=== PATIENT | female | born 1995 | race Caucasian/White ===

== ENCOUNTER 2016-12-11 16:44 | Observation (INO) ==
[2016-12-11 17:41] LABS: Basophils % 0.2 %; Eosinophils # 0.3 K/mcL (0.0-0.6); Eosinophils % 2.3 %; Hematocrit 32.9 % (35.3-44.9); Hemoglobin 11.1 g/dL (11.5-15.4); Immature Granulocytes % 0.5 % (0-4); Lymphocytes # 3.3 K/mcL (0.6-4.6); Lymphocytes % 26.8 %; Mean Corpuscular HGB Conc 33.7 g/dL (31.6-35.5); Mean Corpuscular Hemoglobin 30.8 pg (28.0-33.3); Mean Corpuscular Volume 91.4 fL (83.0-100.0); Mean Platelet Volume 11.6 fL (9.4-12.4); Monocytes # 0.5 K/mcL (0.0-1.3); Monocytes % 3.9 %; Neutrophils # 8.1 K/mcL (1.6-8.9); Platelet Count 193 K/mcL (140-400); Red Cell Distribution Width 12.4 % (11.5-14.5); Segmented Neutrophils % 66.3 %
[2016-12-26 20:00] LABS: Bilirubin,Urine Negative (Negative); Blood,Urine Negative (Negative); Clarity,Urine Cloudy (Clear); Color,Urine Yellow (Yellow); Glucose,Urine (UA) Normal (Normal); Ketones,Urine Negative (Negative); Leukocyte Esterase,Urine Negative (Negative); Nitrite,Urine Negative (Negative); Protein,Urine Negative (Neg-Trace); Specific Gravity,Urine 1.015 (1.010-1.025); Urobilinogen,Urine Normal (Normal)
[2016-12-26 20:05] LABS: Bacteria,Urine None Seen per hpf (None-Few); Hyaline Casts,Urine None Seen per lpf (None-Few); RBC,Urine 0-3 per hpf (0-3); Squamous Epithelial Cell,Urine Many per lpf (None-Few); WBC,Urine 0-3 per hpf (0-3)
[2016-12-26 20:28] LABS: Candida DNA ***DETECTED*** (Not Detect); Gardnerella DNA Not Detected (Not Detect); Trichomonas DNA Not Detected (Not Detect)
--- NOTE | 2016-12-26 20:34 | OB/GYN Progress Note ---
Date of Encounter: 12/26/16 Time of Encounter: 20:40 - Assessment and Plan (1) 31 weeks gestation of Current Visit: Yes Status: Acute (2) False labor Current Visit: Yes Status: Acute Patient presented for labor evaluation with reported loss of fluid and contractions. Fern negative, nitrozine negative. Cervix is closed. Patient observed for over and hour and TOCO showed no contracts. heart tracing category 1. Patient will be discharged home with directions to follow up with her OB. (3) Candidal vulvovaginitis Current Visit: Yes Status: Acute Patient with thin, white discharge on speculum exam. Vaginosis panel positive for candidiasis. Urine showed no signs of infection. Patient will be sent home with clotrimazole vaginally every day for 7 days. Gonorrhea and chlamydia cultures are pending - patient will be called with results. Subjective - Subjective Principal diagnosis: 31 weeks gestation presents with reported contractions and fluid loss Interval history: Ms Diggs is a at 31 weeks who was brought here via EMS for labor evaluation. Patient reports that she had a loss of fluid around 3pm this afternoon and since then she has had contractions every 5 min. She reports good movement. She reports 3 days of white vaginal discharge. She also reports a cold with a cough and some shortness of breath over the last couple days. Patient denies headache, vision changes, chest pain, nausea/vomiting, or changes in bowel and bladder. Patient's previous was a spontaneous vaginal delivery at 30 weeks at [facility]. She also reports a chlamydia infection that was treated during previous . She has been non-compliant this with multiple missed appointments. She has not seen MFM at [facility] as recommended yet this . She is taking her prescribed progesterone. Antepartum ROS: loss of fluid, movement normal, contractions, no vaginal bleeding Objective - Vital Signs Vital Signs: Intake and Output 12/26/16 12/26/16 12/26/16 07:59 15:59 23:59 Other: Weight 82.1 kg Patient Weight 12/26/16 23:59 Weight 82.1 kg - Exam FHR: auscultation normal Auscultation: bilateral: normal Abdomen: Present: normal appearance, soft, gravid Comments: Speculum exam done showed white, thin, foul odored discharge. Fern negative, Nitrozine negative. No signs of bleeding, cervix appears closed. - Labs Labs: Abnormal lab results WBC 12.3 K/mcL (4.3-11.1) H 12/11/16 15:35 RBC 3.60 M/mcL (3.82-4.97) L 12/11/16 15:35 Hgb 11.1 g/dL (11.5-15.4) L 12/11/16 15:35 Hct 32.9 % (35.3-44.9) L 12/11/16 15:35 Urine Clarity Cloudy (Clear) A 12/26/16 19:50 Ur Squamous Epith Cells Many per lpf (None-Few) H 12/26/16 19:50 Subha species DNA DETECTED (Not Detect) A 12/26/16 19:17
== END 2016-12-26 20:53 | disposition home or self-care (01) ==
LOC: LABOML 16:44 → 1NENULAB 16:44 → LABOML 16:45

== ENCOUNTER 2016-12-16 01:00 | Observation (INO) ==
--- NOTE | 2016-12-16 07:21 | OB/GYN Progress Note ---
Date of Encounter: 12/16/16 Time of Encounter: 07:19 - Assessment and Plan (1) 29 weeks gestation of Status: Acute (2) Decreased movement during in third trimester, antepartum Status: Acute Qualifiers: Fetus number: single or unspecified fetus Qualified Code(s): O36.8130 - Decreased movements, third trimester, not applicable or unspecified (3) Non-stress test reactive Status: Acute Subjective - Subjective Interval history: Pt. at 29 weeks to L&D for decreased movements Objective - Vital Signs Vital Signs: Intake and Output 12/15/16 12/15/16 12/16/16 15:59 23:59 07:59 Other: Weight 86.5 kg Patient Weight 12/16/16 23:59 Weight 86.5 kg - Exam FHR: category 1
== END 2016-12-16 01:58 | disposition home or self-care (01) ==
LOC: 1NENULAB

== ENCOUNTER → 2017-02-04 11:08 | Observation (INO) ==
[2017-02-04 08:11] LABS: Bilirubin,Urine Negative (Negative); Blood,Urine Negative (Negative); Clarity,Urine Clear (Clear); Color,Urine Yellow (Yellow); Glucose,Urine (UA) Normal (Normal); Ketones,Urine Negative (Negative); Leukocyte Esterase,Urine Negative (Negative); Nitrite,Urine Negative (Negative); PH,Urine 7.5 pH Units (5.0-8.0); Protein,Urine Negative (Neg-Trace); Specific Gravity,Urine 1.009 (1.010-1.025); Urobilinogen,Urine Normal (Normal)
--- NOTE | 2017-02-04 11:01 | OB/GYN Progress Note ---
Date of Encounter: 02/04/17 Time of Encounter: 10:59 - Assessment and Plan (1) 36 weeks gestation of Current Visit: Yes Status: Acute (2) False labor Current Visit: No Status: Acute No cervical change and no leaking in triage. Discharge home with precautions. (3) Non-stress test reactive Current Visit: No Status: Acute Subjective - Subjective Interval history: 21 year-old at 36w3d presenting for leaking fluid and contractions. She reports some leaking fluid at 0550 this am followed by onset of contractions. She denies additional leaking since. No VB. Contractions are frequent and mildly painful. She denies urinary sx or discharge, itching, or burning. Good FM. No other complaints. Antepartum ROS: loss of fluid, movement normal, contractions, no vaginal bleeding Objective - Vital Signs Vital Signs: Intake and Output 02/03/17 02/04/17 02/04/17 23:59 07:59 15:59 Other: Weight 87.7 kg Patient Weight 02/04/17 23:59 Weight 87.7 kg - Exam FHR: category 1 FHR comments: NST reactive 125BPM Auscultation: bilateral: normal Abdomen: Present: soft, gravid Uterus: Present: normal Cervical dilation: 1-2cm with no cervical change after several hours Comments: Bollottable with palpable bag of water and no leaking noted in triage. - Labs Labs: Abnormal lab results Ur Specific [place] 1.009 (1.010-1.025) L 02/04/17 08:00
== END | disposition home or self-care (01) ==
LOC: 1NENULAB
PROVIDERS: ADMIT Obstetrics & Gynecology; ATTEND Obstetrics & Gynecology

== ENCOUNTER → 2017-02-04 23:52 | Observation (INO) ==
--- NOTE | 2017-02-04 21:32 | OB/GYN Progress Note ---
Date of Encounter: 02/04/17 Time of Encounter: 21:30 - Assessment and Plan (1) 36 weeks gestation of Current Visit: No Status: Acute -Evaluate for ROM -Patient cervix unchanged since this morning -PMH schizophrenia, bipolar, ADHD. Does not take medication. -Urine negative this morning Plan -Continue to monitor mother and fetus-BP, HR -Vaginosis panel -Recheck cervix very hour for changes -If unchanged after 3 hours. Discharge home and f/u with Dr. Hutton as outpatient. (2) Vaginitis affecting in third trimester, antepartum Current Visit: Yes Status: Acute Testing + for BV and Subha. Rx for Terazol7 and Flagyl po x 7 days (3) Noncompliance with treatment Current Visit: Yes Status: Acute GBS testing. Encoouraged to keep appts Subjective - Subjective Principal diagnosis: Contractions and possible ROM Interval history: 21F,, 37w?d (records indicate 36w3d) presents with "fluid coming out of her vagina" and "jackson" at 8:30pm tonight. She was seen for the same issue this morning at 5:50am and discharged home. States around 8:30 she felt a gush of fluid and soaked her jeans and then called the squad. Squad states they noticed no fluid and pads are dry. Her only complaint is pain with the contractions. She is 1-2cm dilated, dry vaginal vault. Otherwise, asymptomatic. She admits to smoking cigarets (1/2 ppd), marijuana 6 times in , denies alcohol use. Is A positive. OBGYN is Dr. Hutton. Antepartum ROS: movement normal, no other (vaginal d/c? LOF?) Objective - Exam FHR: auscultation normal, category 1 FHR comments: 130s baseline Auscultation: bilateral: normal Abdomen: Present: normal appearance, soft, gravid Uterus: Present: normal, firm Cervical dilation: 1-2cm per nurse. Unchanged since this morning. Cervix effacement: 50 Comments: Per nurse, fluid still felt. No ROM. NTZ neg - Attending Attestation I examined this patient and my medical decision-making was reviewed with the ORTHOPHOTO TECH/DRAFTSMAN/PA/Advanced Practice Nurse/Resident Physician. I agree with the documented findings, disposition and treatment plan as described except to the extent set forth below.
[2017-02-04 21:45] VITALS: BP 132/64
[2017-02-04 23:11] LABS: Candida DNA ***DETECTED*** (Not Detect); Gardnerella DNA ***DETECTED*** (Not Detect); Trichomonas DNA Not Detected (Not Detect)
--- NOTE | 2017-02-04 23:45 | Event Note ---
<Zachary Chang - Last Filed: 02/04/17 23:46> Date of Encounter: 02/04/17 Time of Encounter: 23:41 Patient has not had any cervical change management facilitator the last 2 hours. Contractions every 3-6min. FHR 130's with good variability. Patient condition and symptoms unchanged. She tested positive for nicho and BV. UA negative this morning. Will discharge with abx-flagyl and tercanazol. Discussed treatment plan with patient-friend in the room-she feels comfortable going home. Told to call Dr. Hutton office tomorrow morning or return if she has new or worsening symptoms. <Yolanda Trinidad - Last Filed: 02/05/17 07:28> I examined this patient and my medical decision-making was reviewed with the COMMERCIAL FLOOR COVERING INSTALLER/PA/Advanced Practice Nurse/Resident Physician. I agree with the documented findings, disposition and treatment plan as described except to the extent set forth below.
== END | disposition home or self-care (01) ==
LOC: 1NENULAB
PROVIDERS: ADMIT Obstetrics & Gynecology; ATTEND Obstetrics & Gynecology

== ENCOUNTER → 2017-02-09 20:30 | Observation (INO) ==
--- NOTE | 2017-02-09 20:06 | OB/GYN Progress Note ---
Date of Encounter: 02/09/17 Time of Encounter: 20:00 - Assessment and Plan (1) and not yet delivered in third trimester Current Visit: Yes Status: Acute (2) 37 weeks gestation of Current Visit: Yes Status: Acute (3) False labor after 37 completed weeks of gestation Current Visit: Yes Status: Acute discharge home and follow up in the office this week Subjective - Subjective Interval history: Patient is a 21-year-old 2 para 1 at 37-1/7 weeks who presented to labor and delivery complaining of contractions and questionable ruptured membranes. Patient has had very limited care has missed multiple appointments. Patient has a history of delivery was on IM progesterone and was to take that up to 36 weeks that she has not been seen for the past 4 weeks. When questioned why she has not been to the office she states that her car keeps breaking down. Patient thought that she was leaking nitrazine was negative. We have not seen any contractions on the monitor while here on labor and delivery. Patient was 2-3 cm on initial examination no cervical change made. Patient has not had a group B performed yet but we to station detective before he realize that. Patient has an upcoming appointment in 3 days advised her to keep that appointment and they can do the group B at that time. Antepartum ROS: loss of fluid, contractions Objective - Vital Signs Vital Signs: Intake and Output 02/09/17 02/09/17 02/09/17 07:59 15:59 23:59 Other: Weight 88.4 kg Patient Weight 02/09/17 23:59 Weight 88.4 kg - Exam FHR: category 1 FHR comments: heart tones 140s reactive contractions not seen Auscultation: bilateral: normal Abdomen: Present: gravid Uterus: Present: firm Cervical dilation: 2-3 Cervix effacement: 70 station: -3
== END | disposition home or self-care (01) ==
LOC: 1NENULAB
PROVIDERS: ADMIT Obstetrics & Gynecology; ATTEND Obstetrics & Gynecology

== ENCOUNTER 2017-02-23 05:46 | Inpatient (IN) ==
[2017-02-23] MEDS ORDERED: Ondansetron 4 MG/2 ML VIAL IVP PRN ×2 (06:13→21:38)
[2017-02-23] MEDS ORDERED: Naloxone 0.4 MG/ML INJ IVP PRN (06:13)
[2017-02-23] MEDS ORDERED: Famotidine 20 MG/2 ML VIAL IVP PRN (06:13)
[2017-02-23] MEDS ORDERED: Metoclopramide 10 MG/2 ML VIAL IVP PRN (06:13)
[2017-02-23] MEDS ORDERED: *HR* Nalbuphine 20 MG/ML AMPUL IVP PRN (06:20)
[2017-02-23 06:25] LABS: Basophils % 0.2 %; Eosinophils # 0.4 K/mcL (0.0-0.6); Eosinophils % 2.9 %; Hemoglobin 11.5 g/dL (11.5-15.4); Immature Granulocytes % 0.8 % (0-4); Lymphocytes # 5.4 K/mcL (0.6-4.6); Lymphocytes % 36.9 %; Mean Corpuscular HGB Conc 33.8 g/dL (31.6-35.5); Mean Corpuscular Hemoglobin 29.9 pg (28.0-33.3); Mean Corpuscular Volume 88.3 fL (83.0-100.0); Mean Platelet Volume 10.9 fL (9.4-12.4); Monocytes # 0.8 K/mcL (0.0-1.3); Monocytes % 5.3 %; Neutrophils # 7.9 K/mcL (1.6-8.9); Platelet Count 260 K/mcL (140-400); Red Blood Count 3.85 M/mcL (3.82-4.97); Red Cell Distribution Width 12.5 % (11.5-14.5); Segmented Neutrophils % 53.9 %
[2017-02-23] MEDS ORDERED: D5% in 0.45% NACL 1,000 ML IVC SCH (06:30)
[2017-02-23] MEDS: Oxytocin 20 units/ LR 1000 mL 20 UNIT/1,000 ML BAG IVC SCH (07:01)
--- NOTE | 2017-02-23 08:12 | Anesthesia Evaluation PreOp ---
Date of Encounter: 02/23/17 Time of Encounter: 08:10 - Past History Planned Operation: AYSE Cardiac History: Denies any Significant Hx Pulmonary History: Smoker, Pack/yr (7), Asthma (childhood; now well-controlled) Other Medical History: Renal (one kidney has atrophied to size of "pea"--per patient) Anesthesia History: No Prior Anesthetic Complications (denies h/o of complications with NA or GA; denies personal h/o anesthesia complications) : Yes Test: Positive Alcohol Use: none Drug use: marijuana Medications and Allergies MetroNIDAZOLE [Metronidazole] 500 mg PO BID #14 tablet 02/04/17 [Rx] Terconazole [Terazol 7] 45 gm VG DAILY 7 Days 02/04/17 [Rx] Allergies clarithromycin [From Biaxin] Adverse Reaction (Verified 12/16/16 01:06) Hives - Meds/Allergy Pre-op Review Medications Reviewed: Yes Allergies Reviewed: Yes Beta Blockers on Current Med List: No Anesthesia Results - Labs 02/23/17 06:05 Anesthesia Exam 103/55; HR 58; RR 14 Height: 1.6m Weight: 91kg NPO (# of Hours): solids > 8hrs Pain Scale: 3 Pain Scale Used: Numeric (1 - 10) - HEENT Pupil (Motor): Pupils equal Mallampati: I Teeth: Normal Oral Opening: Greater than 3 - HEAD START COORDINATOR LOC: Oriented HEAD START COORDINATOR Motor: Normal RUE, Normal LUE, Normal RLE, Normal LLE, Normal Face HEAD START COORDINATOR Sensory: Normal: RUE, LUE, RLE, LLE, Face - Cardiac Rhythm: Regular Murmur: None - Pulmonary Breath Sounds: bilateral Clear Respiratory Effort: Symmetrical Anesthesia Assess/Plan ASA Score: 2 Modified Alyson Scale for Level of Consciousness: Cooperative, oriented, and tranquil Anesthetic Plan: Regional Autologous Blood: No Monitoring Plan: Standard Monitors Recovery Plan: Other
[2017-02-23] MEDS ORDERED: Bupivacaine-MPF 0.25% 10 ML VIAL EP ONE (08:14)
[2017-02-23] MEDS ORDERED: *HR* FentaNYL (PF) 100 MCG/2 ML VIAL EP ONE (08:14)
[2017-02-23] MEDS ORDERED: Epidural Premix (fent/bupiv) 110 ML EP SCH (08:15)
--- NOTE | 2017-02-23 09:15 | OB/GYN History & Physical ---
Date of Encounter: 02/23/17 Time of Encounter: 09:09 Assessment and Plan (1) 39 weeks gestation of Current visit: Yes Status: Acute admitted for IOL (2) Tobacco use affecting in third trimester, antepartum Current visit: Yes Status: Acute Patient counseled on smoking cessation (3) History of marijuana use Current visit: Yes Status: Acute Cord stat History of Present Illness Chief complaint: Patient presents to Labor and delivery for IOL HPI: Ms. Fallon is a 21 year old female at 39w0d presents to labor and delivery for IOL for Dr. Hutton. Patient reports +FM, denies LOF or VB. Patient has history of 30 week delivery but was not compliant with taking progestrone. Patient is a smoker with THC use and had a history of Chlamydia. Blood Type: A+ , Rubella: Immune, Hep B: Nonreactive, GBS: Negative. Patient plans to breast feed female . Past Med Surg Social Fam HX - Past Medical History Source: patient Medical history: asthma Psychiatric history: anxiety, ADHD, bipolar, depression - Past Surgical History Surgical History: other - Social History Smoking Status: Current every day smoker Packs per day: 1/2 Smokeless Tobacco Status: No Alcohol use: none Drug use: marijuana Current living situation: Home - Independent Activity Level: Independent ambulation Recent Out of Country Travel Within the Last 8 Weeks: No Exposure or Possible Exposure to Illness During Travel: No - Family History Maternal Grandmother Adopted: No Family Member Ethnicity: Non- Living Status: Still Living Hx Family Cardiac Disorders: No Hx Family Respiratory Disorders: Yes (asthma) Hx Family Cancer: Yes (leukemia) Hx Family GI Disorders: No Hx Family Endocrine Disorder: Yes (diabetes) Hx Family Neuromuscular Disorders: No Hx Family Neurologic Disorders: No Hx Family HEENT Disorders: No Hx Family Autoimmune Disorders: No Obstetrical History - Pregnancies : 4 Para: 1 Term: 0 : 1 Ab's: 2 Livin Medications and Allergies MetroNIDAZOLE [Metronidazole] 500 mg PO BID #14 tablet 02/04/17 [Rx] Terconazole [Terazol 7] 45 gm VG DAILY 7 Days 02/04/17 [Rx] Allergies clarithromycin [From Biaxin] Adverse Reaction (Verified 12/16/16 01:06) Hives Review of System OB - Constitutional Constitutional ROS IM: no chills, no fever(s), no headache(s), no weakness - Cardiovascular Cardiovascular: no chest pain, no dyspnea, no edema, no leg edema, no palpitations, no rapid heart rate, no slow heart rate, no syncope - Respiratory Respiratory: no dyspnea - Gastrointestinal Gastrointestinal: no abdominal pain, no constipation, no cramping, no diarrhea, no heartburn, no nausea, no vomiting - Genitourinary Genitourinary: no abnormal vaginal bleeding, no dysuria, no flank pain, no pelvic pain, no urinary frequency, no urinary urgency, no vaginal discharge, no vaginal odor Exam - Constitutional Constitutional: well developed, well nourished, no acute distress, average body habitus - HEENT HEENT: Normocephaly, Mucus Membranes Moist - Neck Neck exam: full ROM, supple - Lungs Respiratory exam: CTAB - Cardiovascular Cardiovascular exam: RRR, +S1, +S2 - Abdomen Abdomen: Present: bowel sounds normal, gravid, non tender - Extremities Extremities exam: full ROM, normal capillary refill, normal inspection Deep Tendon Reflex Grade: 2+ Normal - Cervix Dilation: 4 Effacement: 90 Station: -1 - Uterus Uterus exam: Present: normal size, normal contour - Anus/Rectum Anus/Rectum: Present: normal perianal skin - Comments Comments: FHR 115 bpm moderate variability +15x15 accels no decels noted CAt. 1 tracing. Contractions 3-4 min apart. Pitocin on 4 milliunits. AROM, Moderate amount of clear fluid. Patient tolerated well. Results Result Diagrams: 02/23/17 06:05 Abnormal lab results WBC 14.6 K/mcL (4.3-11.1) H 02/23/17 06:05 Hct 34.0 % (35.3-44.9) L 02/23/17 06:05 Lymphocytes # 5.4 K/mcL (0.6-4.6) H 02/23/17 06:05 All other labs normal. - VTE Reasons for not Prescribing Prophylaxis: Treatment not Indicated - Low risk for VTE
[2017-02-23] MEDS ORDERED: Ringers Solution, Lactated 2,000 ML ONE (09:35)
[2017-02-23] MEDS ORDERED: Bupivacaine-MPF 0.25% 10 ML VIAL ONE (09:42)
[2017-02-23] MEDS ORDERED: Epidural Premix (fent/bupiv) 110 ML EP ONE ×2 (09:42→17:00)
[2017-02-23] MEDS ORDERED: *HR* FentaNYL (PF) 100 MCG/2 ML VIAL ONE ×2 (09:42→20:18)
--- NOTE | 2017-02-23 10:22 | Anesthesia Procedures ---
Date of Encounter: 02/23/17 Time of Encounter: 10:20 Procedures: Anesthesia - Epidural/Spinal Patient ID/Chart reviewed: Yes Patient examined: Yes OB Eval: Gestational age: 39 weeks 0 days OB Eval: : 4 OB Eval: Hx Para: 1 OB Eval: Dilated at (cm): 4 OB Eval: Contractions: Non-stressed pattern Consent Obtained: Yes Supplemental Oxygen: None/Room Air Site Prep: Aseptic Technique, Sterile prep and drape, Povidone-Iodine 1% Patient position: upright Local Anesthetic: Lidocaine 1% Amount of Local Anesthetic used: 3 Touhy Needle Gauge: 18 Touhy Needle Depth (cm): 7 Catheter Depth at Skin (cm): 14 Test Dose (1.5% Lido + Epi): Volume given (mls): 5 (given in 2 equally divided doses over a period of 5 min) Test Dose Result: Negative Loading Dose: 0.25% Marcaine (mls): 5 Loading Dose: Fentanyl (mcg): 100 Loading Dose Administered: Thru Catheter Infusion Med: 0.125% Bupivacaine w/ 2 mcg/ml Fentanyl Infusion Rate (mls/hr): 12 (demand bolus of 4mL q20min) Catheter Secured in Place: Tegaderm, Tape Interspace Used: L3-L4 Loss of Resistance (SHAHNAZ): Yes Blood: No CSF: No Paresthesia: No Vitals + FHT's: please refer to bedside RN's documentation for vital signs
--- NOTE | 2017-02-23 11:58 | OB Labor Progress Note ---
Date of Encounter: 02/23/17 Time of Encounter: 11:56 Labor Progress Note - Subjective Subjective: Patient resting in bed. Patient denies any pain after epidural placement. Discussed POC with patient. Patient denies any questions or concerns. - Cervix Cervix: 4.5/100/0 - Heart Tones Heart Tones: 120 bpm moderate variability +15x15 accels no decels noted. CAt. 1 tracing. - [place]: 2-3 min apart - Interventions Interventions: SVE, IUPC placed without difficulty. Patient tolerated well. - Plan Plan: Continue labor management.
--- NOTE | 2017-02-23 14:15 | OB Labor Progress Note ---
Date of Encounter: 02/23/17 Time of Encounter: 14:13 Labor Progress Note - Subjective Subjective: Patient resting, reports feeling a little pressure despite pushing her bolus button. - Cervix Cervix: 7/100/0 - Heart Tones Heart Tones: 125bpm moderate variability +15x15 accels no decels noted Cat.1 tracing. - [place]: 2-3 min apart - Interventions Interventions: SVE, Patient repositioned to left side with peanut ball. - Plan Plan: Continue labor management.
--- NOTE | 2017-02-23 17:38 | OB Labor Progress Note ---
Date of Encounter: 02/23/17 Time of Encounter: 17:36 Labor Progress Note - Subjective Subjective: Pt. c/o increased pressure - Cervix Cervix: 8/80%/VTX/0 - Heart Tones Heart Tones: Reactive FHR with occ mild variable decels - [place]: Contractions every 2-3 minutes. Pitocin at 15 mU/min. - Plan Plan: Continue expectant management.
--- NOTE | 2017-02-23 17:51 | Anesthesia Progress Note ---
Date of Encounter: 02/23/17 Time of Encounter: 17:49 Anesthesia Note - Note Note: Called to patient bedside to evaluate breakthrough labor pain. Patient reports L sided abdominal pain in addition to R abdominal and back pressure that "wraps around to the front." Confirmed correct catheter position. 5mL of 0.25% bupivicaine administered. Patient reports improvement in perceived pain. VSS 02/23/17 17:49
[2017-02-23] MEDS ORDERED: *HR* Ropivacaine/PF 0.2% 10 ML AMPUL ONE (20:18)
[2017-02-23] MEDS ORDERED: Ringers Solution, Lactated 1,000 ML ONE ×2 (20:34→21:52)
--- NOTE | 2017-02-23 20:37 | OB Labor Progress Note ---
Date of Encounter: 02/23/17 Time of Encounter: 20:35 Labor Progress Note - Subjective Subjective: Pt. in severe pain, crying and has had bolus of epidural. Pain in lower and mid back. - Cervix Cervix: 9/80/VTX/0 - Heart Tones Heart Tones: Reactive FHR - [place]: Contractions every 2 to 2 1/2 minutes. - Plan Plan: Will proceed with C/S for secondary arrest of dilation.
[2017-02-23] MEDS ORDERED: Azithromycin 500 MG in D5% in Water 250 ML IVPB ONE (20:48)
--- NOTE | 2017-02-23 21:34 | Anesthesia Progress Note ---
Date of Encounter: 02/23/17 Time of Encounter: 20:20 Anesthesia Note - Note Note: 02/23/17 21:31 Called to patient bedside to evaluate breakthrough labor pain. Pt c/o 09/08 pain RLQ & RUQ. Confirmed proper catheter position. 10mL of 0.2% ropivicaine + 100mcg fentanyl administered in 2 equally divided doses over a period of 15 minutes. Pt reports significant improvement in pain associated with contractions but is now reporting upper back and neck pain. Patient denies BLE paresthesias or paresis. Pt also remains normo- to hypertensive and NSR.
[2017-02-23] MEDS ORDERED: *HR* Meperidine 50 MG/ML SYRINGE IVP PRN (21:38)
[2017-02-23] MEDS ORDERED: *HR* Promethazine 25 MG/ML VIAL IVP PRN (21:38)
[2017-02-23] MEDS ORDERED: *HR* HYDROmorphone (PF) 1 MG/ML SYRINGE IVP PRN (21:38)
[2017-02-23] MEDS ORDERED: *HR* Morphine Sulfate/PF 5 MG/10 ML AMPUL ONE (21:41)
[2017-02-23] MEDS ORDERED: *HR* Oxytocin 10 UNIT/ML VIAL IM ONE ×2 (21:41→21:52)
[2017-02-23] MEDS ORDERED: *HR* Succinylcholine 200 MG/10 ML VIAL IVP ONE (21:41)
[2017-02-23] MEDS ORDERED: *HR* Propofol 200 MG/20 ML VIAL IVP ONE (21:41)
--- NOTE | 2017-02-23 21:47 | OB/GYN Procedure Note ---
Section - Date of procedure: 02/23/17 Preop diagnosis: arrest of dilation Post-op diagnosis: other (LOP position) Procedure: primary low transverse Surgeon: Te Hutton Estimated blood loss (cc): 400 Roof Technician: Leonard Gamboa Anesthesiologist: Aki Davis Layout Worker: Reilly Zhou Anesthesia Type: General section complications: none Disposition: L&D Recovery Room Specimens: Placenta - (s) A Delivery Date: 02/23/17 Delivery Time: 21:10 Presentation: vertex Position: LOP Route of delivery: other Gender: Female Viability: Viable Pounds: 7 Ounces: 0 Gram Weight: 3180 kg at 1 minute: 7 at 5 minutes: 8 Shoulder Dystocia: not encountered Placenta: complete extraction Cord: 3 umbilical vessels - Narrative Narrative: Patient was taken to the operating room and placed in supine position with left uterine displacement. Skin was then prepped and draped in usual sterile fashion , and a timeout procedure was performed. An epidural was in place but was not functioning well, therefore a general anesthetic was administered. A Pfannenstiel incision was performed and extended down to the fascial layer until the abdominal cavity was entered. A bladder flap was then gently created with sharp dissection. A low transverse uterine incision was performed and extended bilaterally with bandage scissors. A viable female was delivered from a vertex presentation with scores of 7 and 8 at 1 and 5 minutes respectively and the infant weighed 7 pounds 0 ounces (3180 grams). The cord was clamped and cut, and the was handed to the nursery team. The placenta was manually removed. The uterine cavity was wiped clean with wet lap sponge. The uterine incision was closed in a layered fashion with 0 Vicryl suture in a running locking fashion. Good hemostasis was noted. The Paracolic gutters were then gently wiped clean with wet lap sponge. Inspection was then performed with good hemostasis still noted. The fascial layer was closed with 0 PDS Stratafix suture in a running nonlocking fashion. The subcutaneous layer was irrigated with sterile water and then closed with 4-0 Vicryl suture in a running nonlocking fashion, and continuing to close the skin in a running subcuticular fashion. A piece of Dermabond Prineo mesh was then applied over the incision site. Patient tolerated procedure well, all sponge needle and instrument counts reported as correct. Estimated blood loss was 400 mL. The urine in the Howard catheter was clear and yellow, and she was taken to recovery room in stable condition.
[2017-02-23] MEDS ORDERED: Ondansetron 4 MG/2 ML VIAL ONE (21:48)
[2017-02-23] MEDS ORDERED: *HR* HYDROmorphone (PF) 1 MG/ML SYRINGE ONE (21:49)
[2017-02-23] MEDS ORDERED: Acetaminophen IV 1,000 MG/100 ML INFUS..BTL IVPB ONE (22:07)
--- NOTE | 2017-02-23 22:45 | Anesthesia Evaluation Post Op ---
Date of Encounter: 02/23/17 Time of Encounter: 22:44 - Vital Signs Vital Signs: 105/71; HR 73; SpO2 99%; RR14 - Lungs Lungs: Clear Ascult./Percussion - Airway Airway: Non-obstructed - Cardiovascular Regular Rate - Mental Status Mental Status: Alert & Oriented, Answers Appropriately - Pain Pain Scale: 0 Pain Scale used: Numeric (1 - 10) - Nausea Vomiting Nausea Vomiting: Not Present - Hydration Hydration: NPO, Howard catheter - Discharge PostOp Status: Transfer Patient to floor
[2017-02-24] MEDS ORDERED: *HR* HYDROmorphone (PF) 1 MG/ML SYRINGE IVP PRN (00:43)
[2017-02-24] MEDS ORDERED: Ondansetron 4 MG/2 ML VIAL IVP PRN (00:43)
[2017-02-24] MEDS ORDERED: Metoclopramide 10 MG/2 ML VIAL IVP PRN (00:43)
[2017-02-24] MEDS ORDERED: Simethicone 80 MG TAB.CHEW PO PRN (00:43)
[2017-02-24] MEDS ORDERED: Oxytocin 20 units/ LR 1000 mL 20 UNIT/1,000 ML BAG IVC ONE (01:20)
[2017-02-24] MEDS: Oxytocin 20 units/ LR 1000 mL 20 UNIT/1,000 ML BAG IVC SCH (01:23)
[2017-02-24] MEDS: Ibuprofen 600 MG TABLET PO PRN ×3 (02:45→20:36)
[2017-02-24 04:55] LABS: Basophils % 0.2 %; Eosinophils # 0.1 K/mcL (0.0-0.6); Eosinophils % 0.5 %; Hematocrit 27.5 % (35.3-44.9); Immature Granulocytes % 0.8 % (0-4); Lymphocytes # 3.3 K/mcL (0.6-4.6); Lymphocytes % 16.9 %; Mean Corpuscular HGB Conc 33.5 g/dL (31.6-35.5); Mean Corpuscular Hemoglobin 29.9 pg (28.0-33.3); Mean Corpuscular Volume 89.3 fL (83.0-100.0); Mean Platelet Volume 11.1 fL (9.4-12.4); Monocytes # 0.9 K/mcL (0.0-1.3); Monocytes % 4.8 %; Platelet Count 191 K/mcL (140-400); Red Blood Count 3.08 M/mcL (3.82-4.97); Red Cell Distribution Width 12.4 % (11.5-14.5); Segmented Neutrophils % 76.8 %
[2017-02-24 05:01] LABS: Hemoglobin 9.2 g/dL (11.5-15.4)
--- NOTE | 2017-02-24 08:02 | OB/GYN Progress Note ---
Date of Encounter: 02/24/17 Time of Encounter: 08:00 - Assessment and Plan (1) 39 weeks gestation of Current Visit: Yes Status: Acute admitted for IOL (2) Tobacco use affecting in third trimester, antepartum Current Visit: Yes Status: Acute Patient counseled on smoking cessation (3) History of marijuana use Current Visit: Yes Status: Acute Cord stat (4) Status post primary low transverse section Current Visit: Yes Status: Acute Continue pain management patient up to ambulate today patrick at this morning advance diet as tolerated. (5) Breast feeding status of mother Current Visit: Yes Status: Acute continue support prn Subjective - Subjective Principal diagnosis: Postop/ day 1 primary c/s for failure to progress Interval history: Patient in bed with EPCDs, patrick catheter draining yellow urine. Patient reports mild pain. Denies passing flatus at this time. Patient reports: pain well controlled : doing well, nursing well Objective - Vital Signs Latest vital signs: Vital Signs Temp Pulse Resp BP Pulse Ox 02/24/17 03:34 16 02/24/17 03:30 97.5 F L 72 16 108/67 98 02/24/17 02:30 98.3 F 64 18 107/66 98 02/24/17 01:30 18 02/24/17 01:26 97.7 F 62 18 99/60 97 02/24/17 01:15 97.6 F 59 12 102/57 98 02/24/17 01:00 12 02/24/17 00:30 98.4 F 64 16 100/62 98 Intake and Output 02/23/17 02/24/17 02/24/17 23:59 07:59 15:59 Intake Total 100 / 100 1400 / 1400 Output Total 1225 / 1225 Balance 100 / 100 175 / 175 Intake: IV Fluids 100 / 100 1000 / 1000 Pitocin 20 unit In 1,000 1000 / 1000 ml @ Per Protocol IVC . Q0M KOLBY Rx#:[id number] Ofirmev 1,000 mg In 100 100 / 100 ml @ 400 mls/hr IVPB ONCE ONE Rx#:[id number] Oral 400 / 400 Output: Catheter 1225 / 1225 Other: Weight 88.9 kg Patient Weight 02/24/17 23:59 Weight 88.9 kg - Exam Lungs: bilateral: normal Chest: Normal S1, Normal S2 Abdomen: Present: normal appearance, soft Incision: Present: normal, dry, intact, other (binder) Uterus: Present: normal, firm Fundal Height: 2 (U/2) - Labs Labs: Laboratory Results - last 24 hr 02/24/17 04:34 WBC 19.5 H RBC 3.08 L Hgb 9.2 L D Hct 27.5 L MCV 89.3 MCH 29.9 MCHC 33.5 RDW 12.4 Plt Count 191 MPV 11.1 Immature Gran % 0.8 Seg Neutrophils % 76.8 Lymphocytes % 16.9 Monocytes % 4.8 Eosinophils % 0.5 Basophils % 0.2 Neutrophils # 15.0 H Lymphocytes # 3.3 Monocytes # 0.9 Eosinophils # 0.1 Basophils # 0.0
[2017-02-24] MEDS: Prenatal Vit/FA 1 EACH TABLET PO SCH (08:30)
[2017-02-24] MEDS: *HR* OxyCODONE/APAP 5/325 TABLET PO PRN ×3 (08:39→18:06)
[2017-02-24] MEDS ORDERED: Ringers Solution, Lactated 1,000 ML ONE (08:39)
--- NOTE | 2017-02-24 22:53 | Event Note ---
Date of Encounter: 02/24/17 Time of Encounter: 22:33 Was called by the nurse to investigate: patient reports that her neck was "swollen". On physical examination: Patient is well-developed well-nourished alert oriented 3 and in no acute distress. On inspection, the right sternocleidomastoid is prominent with muscle hypertrophy along the anterior clavicular to mastoid process tenderness at origin and insertion. Minimally decreased Active Range Of Motion as patient is able to turn head to the left appropriately however, on rotation to the right patient winces as pain is reproduced, although she has full passive range of motion to the right, symptoms are also reproduced on palpation of SCM and additionally with swallowing/contraction of SCM. There is no palpable cervical spinal tenderness/pain or radiculopathy/ paresthesia on compression or distraction. No evidence of trauma. Oropharynx is patent mallampati one; no swelling/edema. Moist mucous membranes. Normal neurologic exam/no focal deficits. No lymphadenopathy is appreciable. Vitals stable. Afebrile. A/P: Cervical muscle strain of SCM: rest muscle by placing muscle into position of ease, ice pack over affected muscle, continue Ibuprofen to decrease inflammation.
[2017-02-25] MEDS: Ibuprofen 600 MG TABLET PO PRN (04:51)
[2017-02-25] MEDS: Prenatal Vit/FA 1 EACH TABLET PO SCH (08:10)
[2017-02-25 08:19] VITALS: BP 107/63
--- NOTE | 2017-02-25 08:29 | Discharge Summary ---
Date of Encounter: 02/25/17 Time of Encounter: 08:25 - Discharge Diagnosis (1) delivery delivered Priority: Primary Status: Acute Comments: Meeting all milestones, pt states pain well managed on po pain medication, desires discharge. (2) Anemia, Priority: Secondary Status: Acute - Discharge Medications Prescriptions: OxyCODONE/APAP 5/325 [Percocet 5/325 MG] 1 each PO Q4HR PRN #20 tablet PRN Reason: Moderate pain 4-6 Ibuprofen [Motrin] 600 mg PO Q6HR PRN #60 tablet PRN Reason: Cramping Docusate [Colace] 100 mg PO BID #60 capsule Ferrous Sulfate 325 mg PO DAILY #60 tablet Home Medications: MetroNIDAZOLE [Metronidazole] 500 mg PO BID #14 tablet 02/04/17 [Rx] Breast Pump [BREAST PUMP] 1 each .ROUTE AD #1 each 02/25/17 [Rx] Docusate [Colace] 100 mg PO BID #60 capsule 02/25/17 [Rx] Ferrous Sulfate 325 mg PO DAILY #60 tablet 02/25/17 [Rx] Ibuprofen [Motrin] 600 mg PO Q6HR PRN #60 tablet 02/25/17 [Rx] OxyCODONE/APAP 5/325 [Percocet 5/325 MG] 1 each PO Q4HR PRN #20 tablet 02/25/17 [Rx] Vit/FA 1 each PO DAILY tablet 02/25/17 [Rx] Allergies/Adverse Reactions: Allergies clarithromycin [From Biaxin] Adverse Reaction (Verified 12/16/16 01:06) Hives Data Procedures and tests throughout hospitalization: Laboratory Tests 02/23/17 02/24/17 06:05 04:34 WBC 14.6 H 19.5 H RBC 3.85 3.08 L Hgb 11.5 9.2 L D Hct 34.0 L 27.5 L MCV 88.3 89.3 MCH 29.9 29.9 MCHC 33.8 33.5 RDW 12.5 12.4 Plt Count 260 191 MPV 10.9 11.1 Immature Gran % 0.8 0.8 Seg Neutrophils % 53.9 76.8 Lymphocytes % 36.9 16.9 Monocytes % 5.3 4.8 Eosinophils % 2.9 0.5 Basophils % 0.2 0.2 Neutrophils # 7.9 15.0 H Lymphocytes # 5.4 H 3.3 Monocytes # 0.8 0.9 Eosinophils # 0.4 0.1 Basophils # 0.0 0.0 Date of admission: 02/23/17 05:46 Primary care physician: Penelope Zafar MD Discharging clinician: Deidra Guerra Anticipated date of discharge: 02/25/17 - Patient Status Disposition: Home, Self-Care Condition: Good Functional capacity at discharge: independent ambulation Overall status at discharge: patient is back to baseline - Discharge Instructions Instructions: Anemia (GEN) Follow Up With: Penelope Zafar MD [Primary Care Provider] - Te Hutton DO [Partnered Physician] - (March 10, 2017 @ 1:30 pm) - Diet and Activity Activity: increase activity as tolerated Diet: regular diet Hospital Course Reason for admission: IUP at term Delivery: section Episiotomy: none Laceration: none Other procedures: none complications: none Discharge diagnosis: IUP at term delivered baby: female Hospital course: Section - Date of procedure: 02/23/17 Preop diagnosis: arrest of dilation Post-op diagnosis: other (LOP position) Procedure: primary low transverse Surgeon: Te Hutton Estimated blood loss (cc): 400 Anesthesiologist Attending: Leonard Gamboa Anesthesiologist: Aki Davis Supervisor [place]: Reilly Zhou Anesthesia Type: General section complications: none Disposition: L&D Recovery Room Specimens: Placenta - (s) A Delivery Date: 02/23/17 Infant Delivery Time: 21:10 Presentation: vertex Position: LOP Route of delivery: other Gender: Female Viability: Viable Pounds: 7 Ounces: 0 Gram Weight: 3180 kg at 1 minute: 7 at 5 minutes: 8 Shoulder Dystocia: not encountered Placenta: complete extraction Cord: 3 umbilical vessels Stable in . Meeting all milestones appropriate for discharge Time Attestation: Total time spent providing and/or coordinating discharge services: Time Spent: Less than 30 minutes - VTE Reasons for not Prescribing Prophylaxis: Treatment not Indicated - Low risk for VTE Documentation of Mechanical Device: Intermittent pneumatic compression device Exam - Constitutional Vitals: Temp Pulse Resp BP Pulse Ox 98.0 F 63 16 107/63 100 02/25/17 08:18 02/25/17 08:18 02/25/17 08:18 02/25/17 08:18 02/24/17 19:54 General appearance IM: A&O X 3, pleasant, no acute distress - Respiratory Respiratory exam: Present: CTAB - Cardiovascular Cardiovascular exam IM: Present: RRR, +S1, +S2 - GI/Abdominal GI/Abdominal exam IM: normal bowel sounds, soft Incision: normal, intact - Uterine Tone: Firm - Extremities Exam Extremities exam IM: Present: normal capillary refill, normal inspection - Neurological Exam Neurological exam: normal gait, oriented X3 - Psychiatric Additional comments: reports good mood
== END 2017-02-25 11:00 | disposition home or self-care (01) | DRG 540 ==
LOC: 1NENULAB 05:46 → 1NENUOBS 02-24 00:40